=== PATIENT | female | born 1990 | race Caucasian/White ===

== ENCOUNTER 2017-12-24 11:34 | Emergency (ER) | payer OTHER ==
[~2017-12-24] VITALS: Ht 154.9 cm; Wt 62.8 kg
[~2017-12-24 11:34] MED LIST: Motrin PO; PRENATAL 1-1 T1 EACH PO
[2017-12-24 11:46] VITALS: BP 120/62
[2017-12-24 11:59] LABS: HEMATOCRIT 38.2 % (36.0-46.0); HEMOGLOBIN 12.9 G/DL (11.9-15.5); MCH 28.9 PG (29.0-34.0); MCHC 33.8 G/DL (30.0-36.0); MCV 85.5 FL (83-99); PLATELET COUNT 205 K/uL (156-360); RBC DIS.WIDTH-CV 11.9 % (11.8-14.6); RBC DIS.WIDTH-SD 37.2 % (39-53); RED BLOOD COUNT 4.47 M/uL (3.80-5.20); WHITE BLOOD COUNT 5.9 K/uL (4.1-10.2)
[2017-12-24 12:10] LABS: CHLORIDE 108 mEq/L (99-109); POTASSIUM 3.8 mEq/L (3.7-5.4); SODIUM 139 mEq/L (136-147)
[2017-12-24 12:11] LABS: GLUCOSE 105 mg/dL (70-99)
[2017-12-24 12:15] LABS: CREATININE 0.7 mg/dL (0.6-1.3); GFR ESTIMATE (CALCULATED) > 59 mL/min/
[2017-12-24 12:16] LABS: UREA NITROGEN (BUN) 10 mg/dL (9-23)
[2017-12-24 12:19] LABS: TROP-I INTERPRETATION NEGATIVE; TROPONIN-I < 0.01 ng/mL (0.0-0.30)
[2017-12-24 13:57] LABS: QUANTITATIVE HCG < 4.0 MIU/ML
== END 2017-12-24 14:30 | disposition left against medical advice (07) ==
LOC: EME 11:34
DX: R07.9 Chest pain, unspecified (principal); J02.9 Acute pharyngitis, unspecified
CPT/HCPCS: 71046; 80048; 84484; 84702; 85027; 87651 90; 93005; 99281; 99283; J1100